=== PATIENT | male | born 1980 | race Caucasian/White ===

== ENCOUNTER 2017-08-10 19:31 | Emergency (ER) | payer OTHER ==
[~2017-08-10 19:31] MED LIST: Z.0.NO CURRENT MEDS
[2017-08-10 19:34] VITALS: BP 157/86; PULSE 87; RESP 20; TEMP 98.6; O2SAT 100
[2017-08-10] MEDS ORDERED: ONDANSETRON HCL 4 MG/2 ML VIAL ONE (20:08)
[2017-08-10] MEDS ORDERED: SODIUM CHLOR 0.9% 1000 ML INJ 1,000 ML IV ONE (20:12)
[2017-08-10] MEDS ORDERED: KETOROLAC TROMETHAMINE 30 MG/ML (IVP) VIAL IV PUSH ONE (20:15)
[2017-08-10] MEDS ORDERED: ONDANSETRON HCL 4 MG/2 ML VIAL IV PUSH ONE (20:15)
[2017-08-10] MEDS ORDERED: MORPHINE SULFATE 2 MG/ML SYRINGE IV PUSH ONE ×2 (20:15→21:45)
[2017-08-10] MEDS ORDERED: SODIUM CHLORIDE 0.9% FLUSH 10 ML FLUSH IVF PRN (20:15)
--- NOTE | 2017-08-10 20:18 | PD ---
HPI Chief Complaint: Flank/Kidney Pain Time Seen by Provider: 20:12 Travel History International Travel<30 days: No Contact w/Intl Traveler<30days: No Traveled to known affect area: No History of Present Illness HPI 36-year-old male presents to the emergency department by private transportation for complaint of sudden onset right flank pain at 4 PM progressively worsening intermittent and colicky in nature radiates to the lower quadrants bilaterally right greater than left. No fever. Patient's had multiple episodes of nausea and vomiting. Patient has dark urine. No prior history of kidney stones. Patient has history of migraine did take 400 mg of ibuprofen twice earlier today for headache but has no headache at this time. Patient denies any injury. Patient also with history of rheumatologic disorder that has not been diagnosed and last workup was approximately 2 years ago. Patient rates his pain 6-8/10 intensity is colicky in nature and worsening. Unable to identify exacerbating or alleviating factors PFSH Past Medical History Narrative Medical Migraines, hydrocele, rheumatologic disorder; no tobacco use no alcohol use; nursing notes reviewed Cancer: No Diabetes: No Hepatitis: No Hiatal Hernia: No Medical other: Yes (HERPES S.) Reproductive: Yes (ENLARGED PROSTATE) Migraines: Yes Thyroid Disease: No Tetanus Vaccination: > 5 Years Influenza Vaccination: No Past Surgical History Abdominal Surgery: No Cardiac Surgery: No Endocrine Surgery: No Eye Surgery: Yes Genitourinary Surgery: Yes (hydrocele ) Gynecologic Surgery: No Oral Surgery: No Pacemaker: No Thoracic Surgery: No Other Surgery: Yes Social History Alcohol Use: No Tobacco Use: No Substance Use: No Allergies-Medications (Allergen,Severity, Reaction): Coded Allergies: azithromycin (Unverified Allergy, Mild, 12/18/16) Reported Meds & Prescriptions Reported Meds & Active Scripts Active No Active Prescriptions or Reported Medications Review of Systems Except as stated in HPI: all other systems reviewed are Neg General / Constitutional: No: Fever, Chills HENT: No: Congestion Cardiovascular: No: Chest Pain or Discomfort Respiratory: No: Shortness of Breath Gastrointestinal: Positive: Nausea, Vomiting, Abdominal Pain (Right lower quadrant greater than left) Genitourinary: Positive: Hematuria, Flank Pain (Right-sided), No: Urgency, Frequency, Dysuria Musculoskeletal: No: Myalgias, Arthralgias Skin: No Rash Neurologic: No: Weakness Psychiatric: No: Anxiety Hematologic/Lymphatic: No: Lymph Node Enlargement Physical Exam Narrative GENERAL: Well-developed well-nourished male in obvious discomfort difficulty finding position of comfort, mildly hypertensive SKIN: Warm and dry. HEAD: Normocephalic. EYES: No scleral icterus. No injection or drainage. NECK: Supple, trachea midline. No JVD or lymphadenopathy. CARDIOVASCULAR: Regular rate and rhythm without murmurs, gallops, or rubs. RESPIRATORY: Breath sounds equal bilaterally. No accessory muscle use. GASTROINTESTINAL: Abdomen soft, non-tender, nondistended. MUSCULOSKELETAL: No cyanosis, or edema. BACK: Nontender without obvious deformity. Mild right-sided CVA tenderness to palpation and percussion. Data Data Last Documented VS Vital Signs Date Time Temp Pulse Resp B/P (MAP) Pulse Ox O2 Delivery O2 Flow Rate FiO2 08/10/17 19:34 98.6 87 20 157/86 (109) 100 Orders Orders Ondansetron Inj (Zofran Inj) (08/10/17 20:08) Complete Blood Count With Diff (08/10/17 20:12) Basic Metabolic Panel (Bmp) (08/10/17 20:12) Urinalysis - C+S If Indicated (08/10/17 20:12) Ct Abd/Pel W/O Iv Contrast (08/10/17 20:12) Ecg Monitoring (08/10/17 20:12) Iv Access Insert/Monitor (08/10/17 20:12) Ketorolac Inj (Toradol Inj) (08/10/17 20:15) Ondansetron Inj (Zofran Inj) (08/10/17 20:15) Sodium Chloride 0.9% Flush (Ns Flush) (08/10/17 20:15) Sodium Chlor 0.9% 1000 Ml Inj (Ns 1000 M (08/10/17 20:12) Morphine Inj (Morphine Inj) (08/10/17 20:15) Urinalysis - C+S If Indicated (08/10/17 21:13) Morphine Inj (Morphine Inj) (08/10/17 21:45) Tamsulosin (Flomax) (08/10/17 21:45) Labs Laboratory Tests Test 08/10/17 20:16 White Blood Count 12.8 TH/MM3 Red Blood Count 5.04 MIL/MM3 Hemoglobin 15.5 GM/DL Hematocrit 45.5 % Mean Corpuscular Volume 90.2 FL Mean Corpuscular Hemoglobin 30.8 PG Mean Corpuscular Hemoglobin Concent 34.2 % Red Cell Distribution Width 13.5 % Platelet Count 306 TH/MM3 Mean Platelet Volume 8.0 FL Neutrophils (%) (Auto) 78.7 % Lymphocytes (%) (Auto) 15.8 % Monocytes (%) (Auto) 4.1 % Eosinophils (%) (Auto) 0.8 % Basophils (%) (Auto) 0.6 % Neutrophils # (Auto) 10.1 TH/MM3 Lymphocytes # (Auto) 2.0 TH/MM3 Monocytes # (Auto) 0.5 TH/MM3 Eosinophils # (Auto) 0.1 TH/MM3 Basophils # (Auto) 0.1 TH/MM3 CBC Comment DIFF FINAL Differential Comment Urine Collection Type CLEAN CATCH Urine Color ZACHARY Urine Turbidity CLOUDY Urine pH 7.0 Urine Specific [place] 1.020 Urine Protein 100 mg/dL Urine Glucose (UA) NEG mg/dL Urine Ketones TRACE mg/dL Urine Occult Blood LARGE Urine Nitrite NEG Urine Bilirubin NEG Urine Urobilinogen 1.0 MG/DL Urine Leukocyte Esterase NEG Urine RBC INNUM /hpf Urine WBC 0-2 /hpf Urine Squamous Epithelial Cells 0-5 /hpf Urine Amorphous Sediment FEW Urine Mucus MOD /lpf Microscopic Urinalysis Comment CULT NOT INDICATED Blood Urea Nitrogen 23 MG/DL Creatinine 1.20 MG/DL Random Glucose 100 MG/DL Calcium Level 8.8 MG/DL Sodium Level 137 MEQ/L Potassium Level 3.7 MEQ/L Chloride Level 103 MEQ/L Carbon Dioxide Level 26.9 MEQ/L Anion Gap 7 MEQ/L Estimat Glomerular Filtration Rate 68 ML/MIN [facility] Medical Decision Making Medical Screen Exam Complete: Yes Emergency Medical Condition: Yes Medical Record Reviewed: Yes Interpretation(s) CT a/p: CONCLUSION: 3 mm stone at the right proximal ureter with mild dilatation of the right collecting system. There is a 1 mm nonobstructing left renal stone. Yves Hensley MD on August 10, 2017 at 20:56 Board Certified Radiologist. This report was verified electronically. Differential Diagnosis Kidney stone/obstructive uropathy, pyelonephritis, biliary colic, musculoskeletal pain Narrative Course IV access obtained specimens collected and sent for resulting patient administered 1 L normal Zofran 4 mg IV Toradol 30 mg IV morphine sideplate 4 mg IV urine specimen collected sent for resulting and CT kidney stone protocol ordered Diagnosis Primary Impression: Acute unilateral obstructive uropathy Referrals: Urologist call for appointment customer operations intern Urologist: Dr Iglesias Patient Instructions: Narcotic given in the ED, General Instructions Additional Instructions: Increase fluid hydration Follow-up with urologist Take acetaminophen as needed for fever 100.4F or greater Return to the emergency department for pain fever vomiting or any concerns Take medications as prescribed Strain urine Med/Other Pt SpecificInfo: Prescription(s) given Scripts Ondansetron Odt (Zofran Odt) 4 Mg Tab 4 MG SL Q6HR Y for Nausea/Vomiting, #10 TAB 0 Refills Prov: Silvia Manjarrez MD 08/10/17 Ibuprofen (Ibuprofen) 800 Mg Tab 800 MG PO Q8H Y for PAIN GREATER THAN 5, #10 TAB 0 Refills Prov: Silvia Manjarrez MD 08/10/17 Tamsulosin (Flomax) 0.4 Mg Cap 0.4 MG PO HS for Manage Prostate Problems, #7 CAP 0 Refills Prov: Silvia Manjarrez MD 08/10/17 Oxycodone-Acetaminophen (Percocet) 5-325 mg Tab 1-2 TAB PO Q6H Y for PAIN, #10 TAB 0 Refills Prov: Silvia Manjarrez MD 08/10/17 Disposition: 01 DISCHARGE HOME Condition: Stable Silvia Manjarrez MD Aug 10, 2017 20:18
[2017-08-10 20:36] LABS: AUTOMATED NEUTROPHIL # 10.1 TH/MM3 (1.8-7.7); BASOPHIL # 0.1 TH/MM3 (0-0.2); BASOPHIL % 0.6 % (0.0-2.0); EOSINOPHIL # 0.1 TH/MM3 (0-0.4); EOSINOPHIL % 0.8 % (0.0-4.0); HEMATOCRIT 45.5 % (39.0-51.0); HEMOGLOBIN 15.5 GM/DL (13.0-17.0); LYMPH % 15.8 % (9.0-44.0); MEAN CELL VOLUME 90.2 FL (80.0-100.0); MEAN CORPUSCULAR HEMOGLOBIN 30.8 PG (27.0-34.0); MEAN CORPUSCULAR HGB CONC 34.2 % (32.0-36.0); MONO % 4.1 % (0.0-8.0); MONOCYTE # 0.5 TH/MM3 (0-0.9); NEUT % 78.7 % (16.0-70.0); PLATELET COUNT 306 TH/MM3 (150-450); RED BLOOD COUNT 5.04 MIL/MM3 (4.50-5.90); RED CELL DISTRIBUTION WIDTH 13.5 % (11.6-17.2); WHITE BLOOD COUNT 12.8 TH/MM3 (4.0-11.0)
[2017-08-10 20:42] LABS: CALCIUM 8.8 MG/DL (8.5-10.1)
[2017-08-10 20:43] LABS: BICARBONATE 26.9 MEQ/L (21.0-32.0)
[2017-08-10 20:46] LABS: CREATININE 1.2 MG/DL (0.60-1.30)
--- NOTE | 2017-08-10 21:02 | RADRPT ---
EXAM DATE/TIME: 08/10/2017 20:25 [facility] COMPARISON: No previous studies available for comparison. INDICATIONS : Right flank and low back pain. Nausea and vomiting. ORAL CONTRAST: No oral contrast ingested. RADIATION DOSE: 4.78 CTDIvol (mGy) MEDICAL HISTORY : Migraines. SURGICAL HISTORY : None. ENCOUNTER: Initial ACUITY: 1 day PAIN SCALE: 8/10 LOCATION: Right flank TECHNIQUE: Volumetric scanning of the abdomen and pelvis was performed. Using automated exposure control and ad justment of the mA and/or kV according to patient size, radiation dose was kept as low as reasonably achievable to obtain optimal diagnostic quality images. DICOM format image data is available electro nically for review and comparison. FINDINGS: LOWER LUNGS: The visualized lower lungs are clear. LIVER: Homogeneous density without lesion. There is no dilation of the biliary tree. No calcified gallston es. SPLEEN: Normal size without lesion. PANCREAS: Within normal limits. KIDNEYS: There is a 3 mm stone at the proximal right ureter. There is mild dilatation of the right renal colle cting system. There is a 1 mm nonobstructing left renal stone. ADRENAL GLANDS: Within normal limits. VASCULAR: There is no aortic aneurysm. BOWEL/MESENTERY: The stomach, small bowel, and colon demonstrate no acute abnormality. There is no free intraperitone al air or fluid. ABDOMINAL WALL: Within normal limits. RETROPERITONEUM: There is no lymphadenopathy. BLADDER: No wall thickening or mass. REPRODUCTIVE: Within normal limits. A prostatic calcification is present. INGUINAL: There is no lymphadenopathy or hernia. MUSCULOSKELETAL: Within normal limits for patient age. CONCLUSION: 3 mm stone at the right proximal ureter with mild dilatation of the right collecting system. There is a 1 mm nonobstructing left renal stone. Yves Hensley MD on August 10, 2017 at 20:56 Board Certified Radiologist. This report was verified electronically.
[2017-08-10 21:18] LABS: BILIRUBIN, URINE NEG (NEG); BLOOD, URINE LARGE (NEG); GLUCOSE,URINE NEG (NEG); KETONE, URINE TRACE mg/dL (NEG); NITRITE,URINE NEG (NEG); URINE LEUKOCYTE ESTERASE NEG (NEG)
[2017-08-10 21:34] LABS: URINE COLOR AMBER (YELLW/STRAW)
[2017-08-10 21:35] LABS: AMORPHOUS SEDIMENT, URINE FEW; MUCUS URINE MOD /lpf (OCC); RBC, URINE INNUM /hpf (0-3); SQUAMOUS EPITHELIAL CELL URINE 0-5 /hpf (0-5); WBC, URINE 0-2 /hpf (0-5)
[2017-08-10] MEDS ORDERED: TAMSULOSIN HCL 0.4 MG CAP PO ONE (21:45)
[2017-08-10] MEDS ORDERED: IBUP1TAB7 PO (22:18)
[2017-08-10] MEDS ORDERED: TAMS5CAP PO (22:18)
[2017-08-10] MEDS ORDERED: ZOFR4TAB3 SL (22:18)
[2017-08-10] MEDS ORDERED: PERC5TAB12 PO (22:18)
[2017-08-10 22:33] VITALS: BP 142/73; TEMP 98.5
== END 2017-08-10 22:35 | disposition home or self-care (01) ==
LOC: PHED 19:31
DX: N20.0 Calculus of kidney (principal); N40.0 Benign prostatic hyperplasia without lower urinary tract symptoms
CPT/HCPCS: 74176; 80048; 81001; 85025; 96361; 96374; 96375; 96376; 99284; J1885; J2270; J2405; J7030